=== PATIENT | male | born 2000 | race Caucasian/White ===

== ENCOUNTER 2020-02-22 02:38 | Emergency (ER) | payer OTHER ==
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
--- NOTE | 2020-02-22 11:49 | CT ---
Head CT Technique: Multiple axial sections through the brain were obtained. Intravenous contrast was not utilized. Comparison: No prior intracranial imaging is available. Findings: Ventricles along with basal cisterns and sulci over the convexities are within normal limits for the patient's age. No abnormal parenchymal densities are seen. No evidence of intracranial hemorrhage. No midline shift or mass-effect is appreciated. Bone window settings were reviewed. No acute calvarial finding is identified. Visualized paranasal sinuses and visualized mastoid sinuses are clear. Impression: 1. Nothing acute is appreciated on noncontrast head CT exam. Diagnostic code #1 I agree with preliminary report issued by [facility] ([facility] report finalized on 02/22/20, 4:22 AM CDT) This report was dictated in MDT
--- NOTE | 2020-02-22 11:49 | CT ---
CT cervical spine Technique: Multiple axial sections were obtained from above C1 inferiorly to the top of T3. Reconstructed sagittal and coronal images were reviewed. Findings: Vertebral body heights and disc spaces are maintained. Small calcification with minimal deformity noted at the anterior and superior endplate of C5 which is believed to be old. No bony central or bony neural foraminal stenosis is seen. No fracture is identified. Impression: 1. Finding believed to be old and incidental as noted above. 2. No acute fracture or abnormal subluxation is seen. Diagnostic code #2 I agree with preliminary report issued by [facility] ([facility] report finalized on 0 02/22/20, 4:18 AM [facility] [employer]) This report was dictated in MDT
== END 2020-02-22 05:00 | disposition home or self-care (01) ==
LOC: JD.ED 02:38
DX: S13.4XXA Sprain of ligaments of cervical spine, initial encounter (principal); S00.83XA Contusion of other part of head, initial encounter; S80.811A Abrasion, right lower leg, initial encounter; S00.01XA Abrasion of scalp, initial encounter; F10.120 Alcohol abuse with intoxication, uncomplicated; V49.9XXA Car occupant (driver) (passenger) injured in unspecified traffic accident, initial encounter
CPT/HCPCS: 36415; 70450; 70450-26; 72125; 72125-26; 80053; 80307; 85025; 99283; 99284-25

== ENCOUNTER 2024-12-26 23:48 | Emergency (ER) | payer MEDICAID ==
[2024-12-27] MEDS ORDERED: Sodium Chloride 0.9% 10 ML Syringe FLUSH PRN (00:15)
[2024-12-27] MEDS: Propofol 200 MG/20 ML SDV IVPUSH ONE (01:24)
== END 2024-12-27 02:10 | disposition home or self-care (01) ==
LOC: JD.ED 23:48
DX: S43.015A Anterior dislocation of left humerus, initial encounter (principal); S43.035A Inferior dislocation of left humerus, initial encounter; W01.0XXA Fall on same level from slipping, tripping and stumbling without subsequent striking against object, initial encounter
CPT/HCPCS: 23650; 23655; 73020-26-LT; 73020-LT; 73030-26-LT; 73030-LT; 96374; 96376; 99152; 99283-25; 99284; J1171; J2704